=== PATIENT | male | born 1980 | race Hispanic/Latino ===

== ENCOUNTER 2023-10-12 07:32 | Day surgery (SDC) | payer BC ==
[~2023-10-12] VITALS: Ht 170.2 cm; Wt 88.0 kg
[~2023-10-12 07:32] MED LIST: COQ1030 MG PO; LIPITOR10 M1 PO; METFORMIN500 M2 PO
[2023-10-12] MEDS ORDERED: FAMOTIDINE 10MG/ML 2ML SDV IV ONE (07:35)
[2023-10-12] MEDS ORDERED: SODIUM CHLORIDE 0.9% 1,000 ML IV ONE (07:35)
[2023-10-12] MEDS ORDERED: STERILE WATER FOR IRRIGATION 1,000 ML BTL IR ONE (07:44)
[2023-10-12 10:03] VITALS: BP 115/79
[2023-10-12] MEDS ORDERED: PROPOFOL 500 MG/50 ML VIAL IV ONE (13:22)
[2023-10-12] MEDS ORDERED: GLYCOPYRROLATE 0.2 MG/ML IV ONE (13:22)
[2023-10-12] MEDS ORDERED: LIDOCAINE HCL 2% 2ML SDV IV ONE (13:22)
== END 2023-10-12 10:20 | disposition home or self-care (01) | DRG 951 ==
LOC: ENDO 07:32 → ORM 08:00 → ENDO 08:00 → ORM 09:15 → ENDO 10:20
PROVIDERS: ATTEND Surgery
PROC: 0DBK8ZX Excision of Ascending Colon, Via Natural or Artificial Opening Endoscopic, Diagnostic (ICD-10-PCS; principal; 2023-10-12)
DX: Z12.11 Encounter for screening for malignant neoplasm of colon (principal); D12.2 Benign neoplasm of ascending colon; E11.9 Type 2 diabetes mellitus without complications; Z80.0 Family history of malignant neoplasm of digestive organs; Z79.84 Long term (current) use of oral hypoglycemic drugs